=== PATIENT | male | born 1990 | race American Indian/Alaskan Native ===

== ENCOUNTER 2016-12-03 13:29 | Emergency (ER) | payer SELFPAY ==
[2016-12-03 15:22] LABS: Basophils % (Auto) 0.9 % (0.0-1.8); Eosinophils % (Auto) 0.2 % (0.0-4.3); Hematocrit 44.3 % (35.5-45.6); Hemoglobin 14.8 gm/dl (11.8-15.2); Mean Corpuscular HGB Conc 33 % (32-34); Mean Corpuscular Hemoglobin 31 pg (28-32); Mean Corpuscular Volume 92 fl (84-94); Platelet Count 307 K/mm3 (140-440); Red Blood Count 4.83 M/mm3 (3.65-5.03); Red Cell Distribution Width 13.4 % (13.2-15.2); White Blood Count 5.5 K/mm3 (4.5-11.0)
[2016-12-03 15:45] LABS: Alanine Aminotransferase 21 units/L (7-56); Albumin 4.2 g/dL (3.9-5); Alkaline Phosphatase 56 units/L (35-129); Anion Gap 17 mmol/L; Bilirubin,Total 0.8 mg/dL (0.1-1.2); Blood Urea Nitrogen 7 mg/dL (9-20); Calcium 9.5 mg/dL (8.4-10.2); Carbon Dioxide 24 mmol/L (22-30); Chloride 100.6 mmol/L (98-107); Glucose 119 mg/dL (75-100); Lipase 19 units/L (13-60); Potassium 3.8 mmol/L (3.6-5.0); Sodium 138 mmol/L (137-145)
[2016-12-03 16:17] LABS: Bilirubin,Urine NEG (Negative); Blood,Urine NEG (Negative); Ketones,Urine NEG (Negative); Leukocyte Esterase,Urine NEG (Negative); Mucus,Urine FEW /HPF; Nitrite,Urine NEG (Negative); Urobilinogen,Urine < 2.0 mg/dL (<2.0); WBC,Urine < 1.0 /HPF (0.0-6.0)
[2016-12-03 16:24] LABS: Albumin/Globulin Ratio 1.4 %; Total Protein 7.2 g/dL (6.3-8.2)
[2016-12-04] MEDS ORDERED: ZOFRAN IV ONE (02:56)
[2016-12-04] MEDS ORDERED: MORPHINE IV ONE (02:56)
[2016-12-04] MEDS ORDERED: NACL 0.9% 1000 ML 1,000 ML IV ONE (02:56)
--- NOTE | 2016-12-04 03:00 | Emergency Department Report ---
HPI - General Chief Complaint: Abdominal Pain Time Seen by Provider: 12/04/16 02:00 - HPI HPI: The patient is a 26-year-old male presents for evaluation of abdominal pain. The patient reports abdominal pain since this morning, constant since onset, 10/ 10 in severity, cramping and tightening in quality, and associated with nausea and nonbilious, nonbloody emesis. The patient denies fever, chills, night sweats , diarrhea, blood in the stool, dark tarry stool, dysuria, hematuria, flank pain , genital discharge, inability to pass flatus. ED Past Medical Hx - Past Medical History Previous Medical History?: No - Surgical History Additional Surgical History: RIGHT LEG (VANDANA) - Social History Smoking Status: Current Every Day Smoker Substance Use Type: Alcohol, Marijuana - Medications Home Medications: Home Medications Medication Instructions Recorded Confirmed Last Taken Type HYDROcodone/APAP 7.5-325 [[place] 1 each PO Q8HR PRN #15 tablet 12/04/16 Unknown Rx 7.5-325 mg TAB] Ondansetron [Zofran TAB] 4 mg PO Q8HR PRN #15 tablet 12/04/16 Unknown Rx ED Review of Systems ROS: Stated complaint: DIZZINEZZ,ABD PAIN Other details as noted in HPI Constitutional: denies: fever ENT: denies: throat or neck pain Respiratory: denies: cough, shortness of breath Cardiovascular: denies: chest pain Endocrine: denies unexplained weight loss or gain Gastrointestinal: reports abdominal pain, nausea Genitourinary: denies: dysuria Musculoskeletal: denies: leg swelling Skin: denies: rash Neurological: denies: headache Hematological/Lymphatic: denies: easy bleeding or easy bruising Psych: denies sadness or hopelessness Physical Exam - Physical Exam Vital Signs: Vital Signs 12/03/16 12/04/16 12/04/16 15:01 00:34 02:00 Temperature 97.5 F L Pulse Rate 51 L 77 72 Respiratory 17 20 20 Rate Blood Pressure 144/91 Blood Pressure 136/82 126/82 [Left] O2 Sat by Pulse 100 100 100 Oximetry Physical Exam: General: well-nourished, well-developed, no acute distress Head: Normocephalic, atraumatic Eyes: normal sclera ENT: Mucous membranes are pale and dry Neck: No neck stiffness, no cervical adenopathy Respiratory: Breath sounds equal bilaterally, no wheezing, rales, or rhonchi Cardio: S1 and S2 present, no murmurs, rubs, gallops, capillary refill is delayed Abdomen: Normoactive bowel sounds, soft abdomen, generalized tenderness to palpation present, concentrated in the epigastric abdomen, no rigidity, no guarding or rebound tenderness Chest WALL/Back: No tenderness to palpation of the chest wall, no CVA tenderness with percussion Musc: No pitting edema Skin: No rash Neuro: no facial drooping, normal speech Psych: Normal affect ED Course Vital Signs 12/03/16 12/04/16 12/04/16 15:01 00:34 02:00 Temperature 97.5 F L Pulse Rate 51 L 77 72 Respiratory 17 20 20 Rate Blood Pressure 144/91 Blood Pressure 136/82 126/82 [Left] O2 Sat by Pulse 100 100 100 Oximetry ED Medical Decision Making - Lab Data Result diagrams: 12/03/16 15:08 12/03/16 15:08 - Medical Decision Making The patient was seen and examined by myself. The patient is placed on a cardiac cath lab manager and continuous pulse ox. On initial evaluation, the patient was found to be in no distress. Evaluation orders are placed. IV access is established and the patient is given 1 L normal saline fluid bolus and Zofran for nausea, and IV morphine for pain. Lab results were non-concerning including WBC, hemoglobin, hematocrit, electrolytes, renal function, LFTs, lipase, and urinalysis. X-ray of the abdomen is negative for air-fluid levels or other findings concerning for bowel obstruction or bowel perforation. The patient was reevaluated and reported that their symptoms were markedly improved. The patient is stable for discharge with outpatient follow-up. The patient is given follow-up and return instructions. The patient expressed understanding and agreed with the plan. The patient is discharged in stable condition. Critical care attestation.: If time is entered above; I have spent that time in minutes in the direct care of this critically ill patient, excluding procedure time. ED Disposition Clinical Impression: Dehydration, Acute generalized abdominal pain, Nausea and vomiting in adult Disposition: DISCHARGED TO HOME OR SELFCARE Is pt being admited?: No Does the pt Need Aspirin: No Condition: Stable Instructions: Peptic Ulcer (ED), Gastroenteritis (ED), Gastroesophageal Reflux Disease (ED), Acute Nausea and Vomiting (ED) Prescriptions: HYDROcodone/APAP 7.5-325 [[place] 7.5-325 mg TAB] 1 each PO Q8HR PRN #15 tablet PRN Reason: Pain Ondansetron [Zofran TAB] 4 mg PO Q8HR PRN #15 tablet PRN Reason: Nausea Referrals: PRIMARY CARE, [Primary Care Provider] - 3-5 Days Forms: Work/School Release Form(ED) Time of Disposition: 02:58
[2016-12-04 06:48] VITALS: BP 109/57
--- NOTE | 2016-12-04 07:43 | XRay Report ---
ABDOMINAL SERIES: History: Abdominal pain and vomiting. Erect chest film shows no acute or significant changes involving the heart or lung lucas. There is no evidence of free air beneath the diaphragms. The gas pattern within the abdomen is unremarkable. There is no evidence of bowel dilatation, significant air-fluid levels, or masses. Organ shadows are unremarkable. IMPRESSION: Abdominal series within normal limits.
== END 2016-12-04 05:50 | disposition home or self-care (01) ==
LOC: ED 13:29
DX: E86.0 Dehydration (principal); R10.84 Generalized abdominal pain; R11.2 Nausea with vomiting, unspecified; F17.200 Nicotine dependence, unspecified, uncomplicated; F12.10 Cannabis abuse, uncomplicated
CPT/HCPCS: 36415; 74022; 80053; 81001; 83690; 85025; 96361; 96374; 96375; 99284; J2270; J2405; J7030

== ENCOUNTER 2017-01-10 01:22 | Emergency (ER) | payer SELFPAY ==
[2017-01-10 02:18] LABS: Alanine Aminotransferase 19 units/L (7-56); Albumin 4.5 g/dL (3.9-5); Albumin/Globulin Ratio 1.4 %; Alkaline Phosphatase 61 units/L (35-129); Anion Gap 24 mmol/L; Blood Urea Nitrogen 7 mg/dL (9-20); Calcium 9.8 mg/dL (8.4-10.2); Carbon Dioxide 21 mmol/L (22-30); Chloride 96.2 mmol/L (98-107); Glucose 126 mg/dL (75-100); Lipase 31 units/L (13-60); Potassium 3.9 mmol/L (3.6-5.0); Sodium 137 mmol/L (137-145); Total Protein 7.7 g/dL (6.3-8.2)
[2017-01-10] MEDS ORDERED: PEPCID IV ONE (02:21)
[2017-01-10] MEDS ORDERED: BENTYL IM ONE (02:21)
[2017-01-10] MEDS ORDERED: ZOFRAN IV ONE (02:21)
[2017-01-10] MEDS ORDERED: NACL 0.9% 1000 ML 1,000 ML IV ONE (02:21)
[2017-01-10] MEDS ORDERED: MORPHINE IV ONE (02:21)
--- NOTE | 2017-01-10 02:22 | Emergency Department Report ---
ED General Adult HPI - General Chief complaint: Abdominal Pain Stated complaint: STOMACH PAIN/VOMITING/UNABLE TO EAT OR DRINK 2 DAY Time Seen by Provider: 01/10/17 02:14 Source: patient Mode of arrival: Ambulatory Limitations: No Limitations - History of Present Illness Initial comments: This is a 26-year-old male. He is previously unknown to me. He does not have a local primary care doctor. The patient is going to follow-up with a local engineering supplies sales. The patient does consume marijuana recreationally. The patient resents to the ER today complaining of abdominal pain. The abdominal pain is lower, right, left and left flank. It is achy and sharp. It increases with palpation and decreases with rest. The patient denies testicular pain. The patient denies dysuria. The patient indicates pain does not change when he takes a hot warm shower. -: Gradual Location: abdomen Quality: stabbing, aching Consistency: intermittent Improves with: rest Worsens with: movement Associated Symptoms: nausea/vomiting. denies: chest pain, cough - Related Data Previous Rx's Medication Instructions Recorded Last Taken Type HYDROcodone/APAP 7.5-325 [[place] 1 each PO Q8HR PRN #15 tablet 12/04/16 Unknown Rx 7.5-325 mg TAB] Ondansetron [Zofran TAB] 4 mg PO Q8HR PRN #15 tablet 12/04/16 Unknown Rx Dicyclomine [Bentyl] 10 mg PO QID PRN #20 capsule 01/10/17 Unknown Rx Ondansetron [Zofran Odt] 4 mg PO QID PRN #20 tab.rapdis 01/10/17 Unknown Rx Promethazine [Phenergan SUPPOS] 50 mg CO Q6H PRN #15 supp.rect 01/10/17 Unknown Rx Sucralfate [Carafate] 1 gm PO Q6HR #120 tablet 01/10/17 Unknown Rx Allergies Allergy/AdvReac Type Severity Reaction Status Date / Time No Known Allergies Allergy Verified 01/10/17 01:32 ED Review of Systems ROS: Stated complaint: STOMACH PAIN/VOMITING/UNABLE TO EAT OR DRINK 2 DAY Other details as noted in HPI Constitutional: malaise. denies: fever Eyes: denies: vision change ENT: denies: epistaxis Respiratory: denies: cough Cardiovascular: denies: chest pain Gastrointestinal: abdominal pain, nausea Genitourinary: denies: frequency, testicular pain Musculoskeletal: as per HPI Skin: as per HPI Neurological: weakness Psychiatric: as per HPI. denies: homicidal thoughts, suicidal thoughts ED Past Medical Hx - Past Medical History Previous Medical History?: No - Surgical History Past Surgical History?: Yes Additional Surgical History: RIGHT LEG (VANDANA) - Social History Smoking Status: Never Smoker Substance Use Type: None - Medications Home Medications: Home Medications Medication Instructions Recorded Confirmed Last Taken Type HYDROcodone/APAP 7.5-325 [[place] 1 each PO Q8HR PRN #15 tablet 12/04/16 Unknown Rx 7.5-325 mg TAB] Ondansetron [Zofran TAB] 4 mg PO Q8HR PRN #15 tablet 12/04/16 Unknown Rx Dicyclomine [Bentyl] 10 mg PO QID PRN #20 capsule 01/10/17 Unknown Rx Ondansetron [Zofran Odt] 4 mg PO QID PRN #20 tab.rapdis 01/10/17 Unknown Rx Promethazine [Phenergan SUPPOS] 50 mg CO Q6H PRN #15 supp.rect 01/10/17 Unknown Rx Sucralfate [Carafate] 1 gm PO Q6HR #120 tablet 01/10/17 Unknown Rx ED Physical Exam - General Limitations: No Limitations General appearance: alert, in no apparent distress - Head Head exam: Present: atraumatic, normocephalic - Eye Eye exam: Present: normal appearance, EOMI - ENT ENT exam: Present: normal exam, normal orophraynx, mucous membranes moist, normal external ear exam - Neck Neck exam: Present: normal inspection, full ROM. Absent: tenderness, meningismus - Respiratory Respiratory exam: Present: normal lung sounds bilaterally. Absent: respiratory distress, wheezes, rales, rhonchi, stridor, chest wall tenderness, accessory muscle use, decreased breath sounds - Cardiovascular Cardiovascular Exam: Present: regular rate, normal rhythm, normal heart sounds. Absent: bradycardia, tachycardia, irregular rhythm, systolic murmur, diastolic murmur, rubs, gallop - GI/Abdominal GI/Abdominal exam: Present: soft, tenderness, normal bowel sounds. Absent: distended, guarding, rebound, rigid, pulsatile mass - Rectal Rectal exam: Present: deferred - exam: Present: normal inspection. Absent: testicular tenderness, scrotal swelling External exam: Present: normal external exam, other (there is no testicular tenderness. There is normal testicular lie bilaterally. There is normal cremasteric reflex bilaterally.) - Extremities Exam Extremities exam: Present: normal inspection, full ROM, normal capillary refill. Absent: tenderness, pedal edema, joint swelling, calf tenderness - Back Exam Back exam: Present: normal inspection, full ROM. Absent: tenderness, CVA tenderness (R), CVA tenderness (L), muscle spasm, paraspinal tenderness, vertebral tenderness - Neurological Exam Neurological exam: Present: alert, oriented X3, normal gait, other (Extraocular movements intact. Tongue midline. No facial droop. Facial sensation intact to light touch in the V1, V2, V3 distribution bilaterally. 5 and 5 strength in 4 extremities.. Sensation is intact to light touch in 4 extremities.). Absent : motor sensory deficit - Psychiatric Psychiatric exam: Present: normal affect, normal mood - Skin Skin exam: Present: warm, dry, intact, normal color. Absent: rash ED Course Vital Signs 01/10/17 01/10/17 01/10/17 01:32 02:00 02:30 Temperature 98 F Pulse Rate 64 68 59 L Respiratory 16 15 12 Rate Blood Pressure 126/64 114/51 O2 Sat by Pulse 99 100 98 Oximetry 01/10/17 01/10/17 04:58 05:00 Temperature Pulse Rate 83 65 Respiratory 14 16 Rate Blood Pressure 114/51 103/51 O2 Sat by Pulse 98 97 Oximetry - Reevaluation(s) Reevaluation #1: 01/10/17 05:38 Differential diagnosis: GERD, gastritis, pancreatitis, appendicitis, cyclic vomiting syndrome, cannabinoid hyperemesis syndrome Assessment and plan: 26-year-old male with nonspecific abdominal pain, nausea and vomiting. Initially somewhat tender, treated symptomatically. CT scan of the abdomen and pelvis negative for acute intra-abdominal pathology. On reassessment, the patient felt much improved, the abdomen was soft on repeat examination, and he was able to tolerate liquid feeds. The patient indicates that he is outpatient follow-up with gastroenterology. The patient is encouraged to discontinue marijuana consumption. Currently, the patient is clinically sober, has a GCS of 15, NIH score of 0, does not require 1013. ED Medical Decision Making - Lab Data Result diagrams: 01/10/17 01:42 06/03/17 01:42 Vital Signs 01/10/17 01/10/17 01/10/17 01:32 02:00 02:30 Temperature 98 F Pulse Rate 64 68 59 L Respiratory 16 15 12 Rate Blood Pressure 126/64 114/51 O2 Sat by Pulse 99 100 98 Oximetry 01/10/17 01/10/17 04:58 05:00 Temperature Pulse Rate 83 65 Respiratory 14 16 Rate Blood Pressure 114/51 103/51 O2 Sat by Pulse 98 97 Oximetry Lab Results 01/10/17 01/10/17 01/10/17 Range/Units 01:42 01:42 01:49 WBC 9.4 (4.5-11.0) K/mm3 RBC 5.28 H (3.65-5.03) M/mm3 Hgb 16.0 H (11.8-15.2) gm/dl Hct 47.0 H (35.5-45.6) % MCV 89 (84-94) fl MCH 30 (28-32) pg MCHC 34 (32-34) % RDW 13.8 (13.2-15.2) % Plt Count 322 (140-440) K/mm3 Lymph % (Auto) 11.1 L (13.4-35.0) % [place] % (Auto) 5.6 (0.0-7.3) % Eos % (Auto) 0.0 (0.0-4.3) % Baso % (Auto) 0.2 (0.0-1.8) % Lymph # 1.0 L (1.2-5.4) K/mm3 [place] # 0.5 (0.0-0.8) K/mm3 Eos # 0.0 (0.0-0.4) K/mm3 Baso # 0.0 (0.0-0.1) K/mm3 Seg Neutrophils % 83.1 H (40.0-70.0) % Seg Neutrophils # 7.9 H (1.8-7.7) K/mm3 Sodium 137 (137-145) mmol/L Potassium 3.9 (3.6-5.0) mmol/L Chloride 96.2 L (98-107) mmol/L Carbon Dioxide 21 L (22-30) mmol/L Anion Gap 24 mmol/L BUN 7 L (9-20) mg/dL Creatinine 0.7 L (0.8-1.5) mg/dL Estimated GFR > 60 ml/min BUN/Creatinine Ratio 10.00 % Glucose 126 H (75-100) mg/dL Calcium 9.8 (8.4-10.2) mg/dL Total Bilirubin 1.00 (0.1-1.2) mg/dL AST 13 (5-40) units/L ALT 19 (7-56) units/L Alkaline Phosphatase 61 (35-129) units/L Total Protein 7.7 (6.3-8.2) g/dL Albumin 4.5 (3.9-5) g/dL Albumin/Globulin Ratio 1.4 % Lipase 31 (13-60) units/L Urine Color Yellow (Yellow) Urine Turbidity Clear (Clear) Urine pH 6.0 (5.0-7.0) Ur Specific [place] 1.029 (1.003-1.030) Urine Protein 30 mg/dl (Negative) mg/dL Urine Glucose (UA) 50 (Negative) mg/dL Urine Ketones 80 (Negative) mg/dL Urine Blood Sm (Negative) Urine Nitrite Neg (Negative) Urine Bilirubin Neg (Negative) Urine Urobilinogen < 2.0 (<2.0) mg/dL Ur Leukocyte Esterase Neg (Negative) Urine WBC (Auto) 2.0 (0.0-6.0) /HPF Urine RBC (Auto) 5.0 (0.0-6.0) /HPF Urine Mucus 3+ /HPF - Radiology Data Radiology results: report reviewed, image reviewed CT scan of the abdomen and pelvis with contrast demonstrated no acute disease, the appendix is within normal limits Critical care attestation.: If time is entered above; I have spent that time in minutes in the direct care of this critically ill patient, excluding procedure time. ED Disposition Clinical Impression: Abdominal pain Disposition: DISCHARGED TO HOME OR SELFCARE Is pt being admited?: No Does the pt Need Aspirin: No Condition: Stable Instructions: Abdominal Pain (ED) Additional Instructions: Take the pain medication, nausea medication as directed. Discontinue consumption of marijuana. Follow up with a gastroenterology specialist within the next 2 weeks. Return to the ER right away with new pain, worsened pain, migration of pain, confusion, fevers, chills, intractable nausea or vomiting, inability to tolerate liquid feeds. Referrals: PRIMARY CARE, [Primary Care Provider] - 3-5 Days KAYLEE YANEZ MD [Staff Physician] - 3-5 Days
[2017-01-10] MEDS ORDERED: NACL ONE (02:32)
[2017-01-10 02:39] LABS: Bilirubin,Urine NEG (Negative); Blood,Urine SM (Negative); Ketones,Urine 80 mg/dL (Negative); Leukocyte Esterase,Urine NEG (Negative); Mucus,Urine 3+ /HPF; Nitrite,Urine NEG (Negative); Urobilinogen,Urine < 2.0 mg/dL (<2.0)
[2017-01-10 02:47] LABS: Basophils % (Auto) 0.2 % (0.0-1.8); Mean Corpuscular HGB Conc 34 % (32-34); Mean Corpuscular Hemoglobin 30 pg (28-32); Mean Corpuscular Volume 89 fl (84-94); Platelet Count 322 K/mm3 (140-440); Red Blood Count 5.28 M/mm3 (3.65-5.03); Red Cell Distribution Width 13.8 % (13.2-15.2); White Blood Count 9.4 K/mm3 (4.5-11.0)
--- NOTE | 2017-01-10 03:34 | Cat Scan Report ---
FINAL REPORT EXAM: CT ABDOMEN PELVIS W CON HISTORY: abd pain TECHNIQUE: CT images are acquired through the Abdomen and Pelvis following intravenous administration of contrast. Transaxial and coronal reformations are provided. PRIORS: None FINDINGS: Partially visualized intrathoracic contents are unremarkable. The liver, gallbladder, pancreas, spleen, and adrenal glands are normal. Kidneys show no worrisome lesions, hydronephrosis, or calculi. Urinary bladder is unremarkable. Small and large bowel are normal in caliber. Appendix is normal. No free air, free fluid, or lymphadenopathy identified. Aorta is normal in course and caliber. Superficial soft tissues are unremarkable. No acute or aggressive appearing skeletal findings. IMPRESSION: No acute intra-abdominal process.
[2017-01-10 06:18] VITALS: BP 104/56
== END 2017-01-10 06:00 | disposition home or self-care (01) ==
LOC: ED 01:22
DX: R10.30 Lower abdominal pain, unspecified (principal); F12.10 Cannabis abuse, uncomplicated
CPT/HCPCS: 36415; 74177; 80053; 81001; 83690; 85025; 96361; 96372; 96374; 96375; 99284; J0500; J2270; J2405; J7030; Q9967

== ENCOUNTER 2017-01-11 14:45 | Emergency (ER) | payer OTHER ==
[2017-01-11 15:30] LABS: Basophils % (Auto) 0.9 % (0.0-1.8); Eosinophils % (Auto) 0.4 % (0.0-4.3); Hematocrit 42.1 % (35.5-45.6); Hemoglobin 14.4 gm/dl (11.8-15.2); Mean Corpuscular HGB Conc 34 % (32-34); Mean Corpuscular Hemoglobin 31 pg (28-32); Mean Corpuscular Volume 90 fl (84-94); Platelet Count 283 K/mm3 (140-440); Red Blood Count 4.68 M/mm3 (3.65-5.03); Red Cell Distribution Width 13.9 % (13.2-15.2); White Blood Count 7.2 K/mm3 (4.5-11.0)
[2017-01-11 15:47] LABS: Anion Gap 23 mmol/L; Blood Urea Nitrogen 10 mg/dL (9-20); Calcium 9.4 mg/dL (8.4-10.2); Carbon Dioxide 20 mmol/L (22-30); Chloride 93.7 mmol/L (98-107); Glucose 121 mg/dL (75-100); Potassium 3.3 mmol/L (3.6-5.0); Sodium 133 mmol/L (137-145)
[2017-01-11 15:51] LABS: Albumin 4.4 g/dL (3.9-5); Albumin/Globulin Ratio 1.8 %; Bilirubin,Direct 0.2 mg/dL (0-0.2); Bilirubin,Indirect 1.4 mg/dL; Bilirubin,Total 1.6 mg/dL (0.1-1.2); Total Protein 6.8 g/dL (6.3-8.2)
[2017-01-11] MEDS ORDERED: NACL 0.9% 1000 ML 1,000 ML IV ONE (17:08)
[2017-01-11] MEDS ORDERED: ZOFRAN IV ONE (17:08)
[2017-01-11] MEDS ORDERED: MORPHINE IV ONE (17:08)
[2017-01-11] MEDS ORDERED: PROTONIX IV ONE (17:26)
--- NOTE | 2017-01-11 17:27 | Emergency Department Report ---
HPI - General Chief Complaint: Nausea/Vomiting/Diarrhea Time Seen by Provider: 01/11/17 16:21 - HPI HPI: This is a 26-year-old Afro-[place] male who presents to the emergency department from home with complaint of generalized abdominal pain, some chest discomfort, nausea and vomiting. The patient started vomiting blood once he got to triage. He was seen here yesterday for similar symptoms that was mostly the abdominal discomfort. At that time he had a CT of the abdomen and pelvis that did not show any acute process. He does not have any diagnosed past medical history. He does not have a primary care physician. No recent travel or sick contacts at home. 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 ED Past Medical Hx - Past Medical History Previous Medical History?: No - Surgical History Past Surgical History?: No Additional Surgical History: RIGHT LEG (VANDANA) - Social History Smoking Status: Current Every Day Smoker Substance Use Type: Alcohol - Medications Home Medications: Home Medications Medication Instructions Recorded Confirmed Last Taken Type HYDROcodone/APAP 7.5-325 [[place] 1 each PO Q8HR PRN #15 tablet 12/04/16 Unknown Rx 7.5-325 mg TAB] Ondansetron [Zofran Odt] 4 mg PO QID PRN #20 tab.rapdis 01/10/17 Unknown Rx Promethazine [Phenergan SUPPOS] 50 mg CO Q6H PRN #15 supp.rect 01/10/17 Unknown Rx Sucralfate [Carafate] 1 gm PO Q6HR #120 tablet 01/10/17 Unknown Rx Dicyclomine [Bentyl] 10 mg PO QID PRN #20 capsule 01/11/17 Unknown Rx Docusate Sodium [Colace] 100 mg PO BID PRN #20 capsule 01/11/17 Unknown Rx Ondansetron [Zofran TAB] 4 mg PO Q8HR PRN #10 tablet 01/11/17 Unknown Rx Pantoprazole [Protonix TAB] 20 mg PO QDAY #20 tablet. 01/11/17 Unknown Rx ED Review of Systems ROS: Stated complaint: VOMITING/RACING HEART Other details as noted in HPI Comment: All other systems reviewed and negative Constitutional: denies: chills, fever Eyes: denies: eye pain, eye discharge, vision change ENT: denies: ear pain, throat pain Respiratory: denies: cough, shortness of breath, wheezing Cardiovascular: chest pain. denies: palpitations Gastrointestinal: abdominal pain, nausea, vomiting, hematemesis Genitourinary: denies: urgency, dysuria Musculoskeletal: denies: back pain, joint swelling, arthralgia Skin: denies: rash, lesions Neurological: denies: headache, weakness, paresthesias Physical Exam - Physical Exam Vital Signs: Vital Signs 01/11/17 14:58 Temperature 98.6 F Pulse Rate 113 H Respiratory 20 Rate Blood Pressure 127/80 O2 Sat by Pulse 100 Oximetry Physical Exam: GENERAL: The patient is well-developed well-nourished. HEENT: Normocephalic. Atraumatic. Extraocular motions are intact. Patient has moist mucous membranes. Pupils equal reactive to light bilaterally. NECK: Supple. Trachea is midline. CHEST/LUNGS: Clear to auscultation. There is no respiratory distress noted. HEART/CARDIOVASCULAR: Regular. There is no tachycardia. There is no gallop rub or murmur. ABDOMEN: Abdomen is soft. There is some generalized tenderness to palpation of the abdomen. No guarding or rebound tenderness. Patient has normal bowel sounds. There is no abdominal distention. SKIN: Skin is warm and dry. NEURO: The patient is awake, alert, and oriented. The patient is cooperative. The patient has no focal neurologic deficits. The patient has normal speech. MUSCULOSKELETAL: There is no tenderness or deformity. There is no limitation range of motion. There is no evidence of acute injury. ED Course Vital Signs 01/11/17 14:58 Temperature 98.6 F Pulse Rate 113 H Respiratory 20 Rate Blood Pressure 127/80 O2 Sat by Pulse 100 Oximetry ED Medical Decision Making - Lab Data Result diagrams: 01/11/17 15:17 01/11/17 15:17 - EKG Data -: EKG Interpreted by Me EKG shows normal: sinus rhythm, axis, intervals, QRS complexes, ST-T waves Rate: bradycardia (50 bpm) - EKG Data When compared to previous EKG there are: previous EKG unavailable Interpretation: normal EKG (with sinus phylicia) - Radiology Data Radiology results: image reviewed interpreted by me: Chest x-ray did not show any acute process. Heart is normal shape and size. No effusions. No pneumothorax. No signs of pneumonia seen. Abdominal x-ray does not show any acute process. - Medical Decision Making 26-year-old male presents the emergency department for the second day in a row with abdominal discomfort but today he had some nausea and vomiting and even an episode of hematemesis. The patient had a CT of the abdomen and pelvis yesterday that did not show any acute process or any etiology of his symptoms. A abdominal x-ray was done today did not show any acute process. He said that the pain radiated up towards his chest some so a chest x-ray was done that did not show any acute process. EKG also did not show any signs of ST elevation [place] , ischemia or dysrhythmia. Labs were mostly unremarkable as well including no leukocytosis, renal insufficiency, glucose abnormalities and he had normal lipase and LFTs. He also had a negative troponin. Bilirubin was slightly elevated but the patient has been vomiting and I believe that is the cause of this mild elevation. He had some mild hyperkalemia with a potassium of 3.3 which was replaced with potassium chloride. Patient received Zofran, IV fluid resuscitation and pain medication. Patient was reevaluated multiple times over multiple hours and says he is feeling much better. The nausea and vomiting is completely resolved. The abdominal pain is greatly improved and is only considered to be mild. The patient was covered with some Protonix here in the emergency department as well. He appears safe for discharge home at this time. Vital signs stable throughout his ED course including being afebrile and the mild tachycardia has resolved. He was given referrals for primary care and gastroenterology. He was sent home with antiemetics, pain medication, stool softener and a PPI. He will return to the ER with any worsening of his symptoms or any acute distress. - Differential Diagnosis gastroenteritis, food poisoning, celiac disease, irritable bowel syndrome, Critical Care Time: No Critical care attestation.: If time is entered above; I have spent that time in minutes in the direct care of this critically ill patient, excluding procedure time. ED Disposition Clinical Impression: Abdominal pain Qualifiers: Abdominal location: generalized Qualified Code(s): R10.84 - Generalized abdominal pain Nausea & vomiting Qualifiers: Vomiting type: unspecified Vomiting Intractability: non-intractable Qualified Code(s): R11.2 - Nausea with vomiting, unspecified Hematemesis Qualifiers: Nausea presence: with nausea Qualified Code(s): K92.0 - Hematemesis Disposition: DISCHARGED TO HOME OR SELFCARE Is pt being admited?: No Condition: Stable Instructions: Acute Nausea and Vomiting (ED), Abdominal Pain (ED) Additional Instructions: Please increase your oral rehydration. Please follow-up with a primary care doctor and global safety officer as soon as possible. Return to the emergency department with any worsening of your symptoms or any acute distress. You've been prescribed a medication that is sedating. Therefore this medication cannot be mixed with alcohol, or taken prior to driving, working, or being responsible for children. Prescriptions: Dicyclomine [Bentyl] 10 mg PO QID PRN #20 capsule PRN Reason: Pain Docusate Sodium [Colace] 100 mg PO BID PRN #20 capsule PRN Reason: Constipation Ondansetron [Zofran TAB] 4 mg PO Q8HR PRN #10 tablet PRN Reason: Nausea Pantoprazole [Protonix TAB] 20 mg PO QDAY #20 tablet. Referrals: LATOYA GILL MD [Primary Care Provider] - 3-5 Days KAYLEE YANEZ MD [Staff Physician] - 3-5 Days [facility] [Outside] - 3-5 Days Forms: Work/School Release Form(ED) Time of Disposition: 23:32
[2017-01-11] MEDS ORDERED: K-DUR PO ONE (17:30)
--- NOTE | 2017-01-11 18:26 | XRay Report ---
FINAL REPORT PROCEDURE: XR CHEST 1V AP TECHNIQUE: Chest radiograph anteroposterior view. CPT 65197 HISTORY: CP COMPARISON: No prior studies are available for comparison. FINDINGS: Heart: Normal. Mediastinum/Vessels: Normal. Lungs/Pleural space: Normal. Bony thorax: No acute osseous abnormality. Life support devices: None. IMPRESSION: No acute cardiopulmonary abnormality.
--- NOTE | 2017-01-11 18:28 | XRay Report ---
FINAL REPORT PROCEDURE: XR ABDOMEN 2V TECHNIQUE: Abdominal series, including supine and upright AP views. HISTORY: Abd pain COMPARISON: No prior studies are available for comparison. FINDINGS: Bowel gas pattern:Nonobstructive . Masses or calcifications:None . Bony structures:No significant abnormality . Pneumoperitoneum:The diaphragms are not included on the upright evaluation. Other:No significant findings . IMPRESSION: No acute abnormality.
[2017-01-11] MEDS ORDERED: NACL 0.9% 1000 ML 1,000 ML ONE (21:27)
[2017-01-11 22:01] LABS: Bilirubin,Urine NEG (Negative); Blood,Urine NEG (Negative); Ketones,Urine 20 mg/dL (Negative); Leukocyte Esterase,Urine NEG (Negative); Mucus,Urine FEW /HPF; Nitrite,Urine NEG (Negative); Protein,Urine <15 mg/dL mg/dL (Negative); Urobilinogen,Urine < 2.0 mg/dL (<2.0); WBC,Urine < 1.0 /HPF (0.0-6.0)
[2017-01-12 00:20] VITALS: BP 102/57
== END 2017-01-11 23:45 | disposition home or self-care (01) ==
LOC: ED 14:45
DX: K92.0 Hematemesis (principal); F17.200 Nicotine dependence, unspecified, uncomplicated
CPT/HCPCS: 36415; 71010; 74020; 80048; 80074; 81001; 82150; 83690; 84484; 85025; 93005; 93010; 96361; 96374; 96375; 99284; C9113; J2270; J2405; J7030